=== PATIENT | male | born 1965 | race Hispanic/Latino ===

== ENCOUNTER 2017-12-23 07:08 | Emergency (ER) | payer BC ==
[2017-12-23] MEDS ORDERED: Morphine 4 MG/ML VIAL ONE ×2 (08:41→08:42)
== END 2017-12-23 10:00 | disposition home or self-care (01) ==
LOC: ERS 07:08
DX: M54.12 Radiculopathy, cervical region (principal); E11.9 Type 2 diabetes mellitus without complications; I10 Essential (primary) hypertension
CPT/HCPCS: 96372; J2270